=== PATIENT | female | born 1945 | race Two or more races ===

== ENCOUNTER 2019-04-02 16:41 | Emergency (ER) | payer MEDICARE, MEDICAID ==
[~2019-04-02] VITALS: Ht 157.5 cm; Wt 66.0 kg
[2019-04-02 16:44] VITALS: BP 99/56
--- NOTE | 2019-04-02 17:13 | NUR ---
PT RETURNED FROM XRAY. UNABLE TO COMPLETE ALL IMAGING PT WAS NON-COMPLIANT WITH XRAY
[2019-04-02] MEDS ORDERED: HYDROcodone/APAP 5/325 TABLET ONE (17:14)
--- NOTE | 2019-04-02 17:17 | NUR ---
PT REFUSING NORCO, "THOSE DON'T WORK" AND IS REQUESTING TRAMADOL. ERP AWARE.
--- NOTE | 2019-04-02 17:29 | NUR ---
DC EDUCATION PROVIDED, PT DEMONSTRATES UNDERSTANDING. PT TRANSFERED SELF TO OWN WHEELCHAIR. PT WHEELED TO DC WITH RN. PT STATES THAT DAUGHTER IS IN LOBBY TO TRANSPORT PT HOME.
[2019-04-02] MEDS ORDERED: HYDROcodone/APAP 5/325 TABLET PO ONE (17:30)
== END 2019-04-02 17:36 | disposition home or self-care (01) ==
LOC: ED 17:05
DX: M16.0 Bilateral primary osteoarthritis of hip (principal); M25.561 Pain in right knee; M25.562 Pain in left knee; E11.9 Type 2 diabetes mellitus without complications; E78.5 Hyperlipidemia, unspecified
CPT/HCPCS: 99283